=== PATIENT | male | born 1970 | race Caucasian/White ===

== ENCOUNTER 2018-05-27 11:17 | Emergency (ER) | payer MEDICAID, SELFPAY ==
[2018-05-27] VITALS (52 sets, daily range): BP systolic 123–146; BP diastolic 66–93; PULSE 63–86; RESP 12–32; TEMP 37.1–37.2; O2SAT 92–98
--- NOTE | 2018-05-27 11:37 | ED.GENADUL_ITS ---
Discharge Plan Disposition Patient Disposition: HOME Condition: Stable Discharge Details Chief Complaint: Chest Pain Clinical Impression: Atypical chest pain Primary Care Provider: Reid Bowling ED Provider: Estefani Andrade Home Meds and New Rx's Prescriptions: Continue losartan-hydrochlorothiazide 1 EACH tablet 1 tab-cap PO DAILY Qty: 90 RF: 3 Discharge Instructions Instructions: Chest Pain (ED) Additional Instructions: Please return immediately to the emergency department if you develop any new or worsening symptoms or if you become otherwise concerned. It is extremely important that you make an appointment to be seen by your primary care doctor this week in follow-up for this visit. It is also extremely important that you undergo cardiac stress testing within 72 hours at this visit as we discussed. Please call [phone] if you have any difficulty with these follow-up appointments. Referrals: Reid Bowling, DO [Primary Care Provider] - Discharge Data Discharge Date/Time-TO BE ENTERED AT DEPARTURE: 05/27/18 15:56 Medical Decision Making Noah Bartlett is a 47-year-old man with history of hypertension presenting to the emergency department with sharp, stabbing intermittent chest pain last for 3 -4 seconds at a time and has been occurring every 15 minutes or so since he woke up yesterday morning, worse with burping and occasionally worse with deep breathing. No other associated symptoms. On exam patient is very well and nontoxic appearing. He has no abdominal tenderness palpation. There is no tenderness of the sternum in the area of the pain. Concern for GERD versus esophageal spasm versus ACS versus PE versus other. At this time relatively low suspicion for ACS, will hold aspirin. Low risk for PE. Plan for EKG, chest x-ray, labs, telemetry, IV Protonix, will monitor and reassess. EKG, chest x-ray okay. Has had an episode of same stabbing 3-4 seconds of pain after Protonix. Plan for GI cocktail. Labs nondiagnostic, awaiting second troponin. Patient did have episode of pain after GI cocktail. Suspect esophageal etiology at this time with 2 troponins negative and very atypical nature pain. Patient with heart score 3. Low risk, plan for outpatient stress test and outpatient follow-up. Lengthy discussion with patient regarding return to emergency department precautions and importance of outpatient follow-up with PCP. He is amenable to the plan. Medical Records Medical records reviewed: Yes I reviewed the patient's medical records. Imaging Data Radiologic Study: Attestation: I personally reviewed and interpreted this imaging study as follows: Radiologist's impression: PA AND LATERAL CHEST: Comparison is made with August,. The heart size is at the upper limits of normal. The lungs appear clear. No infiltrate, effusion or pulmonary edema is seen. There is no evidence of pneumothorax. IMPRESSION: No acute abnormality. Lab Data Lab results reviewed: Yes I reviewed the patient's lab results. Laboratory Tests Range/Units 05/27/18 05/27/18 05/27/18 11:55 11:55 11:55 WBC (4.4-10.8) k/cumm 11.30 H RBC (4.50-6.00) m/cumm 4.88 Hgb (13.5-17.5) g/dL 14.9 Hct (40.0-50.0) % 43.9 MCV (80-95) fL 90.0 MCH (27.0-33.0) pg 30.5 MCHC (32.0-36.0) g/dL 33.9 RDW (11.8-14.1) % 13.4 Plt Count (130-400) x1000/uL 214 MPV (8.0-11.0) fL 10.3 Immature Gran % 0.2 Neutrophils % 69.9 Lymphocytes % 16.4 Monocytes % 8.1 Eosinophils % 5.0 Basophils % 0.4 Absolute Neutrophils (1.2-6.7) k/cumm 7.90 H Absolute Lymphocytes (1.2-3.4) k/cumm 1.85 Absolute Monocytes (0.11-0.7) k/cumm 0.92 H Absolute Eosinophils (0.0-0.7) k/cumm 0.57 Absolute Basophils (0.0-0.2) k/cumm 0.05 D-Dimer (<500) ng/mlFEU 374 Sodium (136-145) mmol/L 137 Potassium (3.5-5.1) mmol/L 3.8 Chloride (98-107) mmol/L 102 Carbon Dioxide (21.0-32.0) mmol/L 28.7 Anion Gap (3-11) mmol/L 6.3 BUN (7-18) mg/dL 18 Creatinine (0.70-1.30) mg/dL 1.05 Estimated GFR/1.73 m2 (mL/min/1.73m2) >= 60.00 Glucose (70-100) mg/dL 108 H Calcium (8.5-10.1) mg/dL 9.2 Total Bilirubin (0.2-1.0) mg/dL 0.4 AST (15-37) U/L 19 ALT (12-78) U/L 41 Alkaline Phosphatase (46-116) U/L 69 Troponin I (0.00-0.06) ng/mL < 0.02 Total Protein (6.4-8.2) g/dL 7.3 Albumin (3.4-5.0) g/dL 3.6 Lipase (73-393) U/L 148 Range/Units 05/27/18 15:00 WBC (4.4-10.8) k/cumm RBC (4.50-6.00) m/cumm Hgb (13.5-17.5) g/dL Hct (40.0-50.0) % MCV (80-95) fL MCH (27.0-33.0) pg MCHC (32.0-36.0) g/dL RDW (11.8-14.1) % Plt Count (130-400) x1000/uL MPV (8.0-11.0) fL Immature Gran % Neutrophils % Lymphocytes % Monocytes % Eosinophils % Basophils % Absolute Neutrophils (1.2-6.7) k/cumm Absolute Lymphocytes (1.2-3.4) k/cumm Absolute Monocytes (0.11-0.7) k/cumm Absolute Eosinophils (0.0-0.7) k/cumm Absolute Basophils (0.0-0.2) k/cumm D-Dimer (<500) ng/mlFEU Sodium (136-145) mmol/L Potassium (3.5-5.1) mmol/L Chloride (98-107) mmol/L Carbon Dioxide (21.0-32.0) mmol/L Anion Gap (3-11) mmol/L BUN (7-18) mg/dL Creatinine (0.70-1.30) mg/dL Estimated GFR/1.73 m2 (mL/min/1.73m2) Glucose (70-100) mg/dL Calcium (8.5-10.1) mg/dL Total Bilirubin (0.2-1.0) mg/dL AST (15-37) U/L ALT (12-78) U/L Alkaline Phosphatase (46-116) U/L Troponin I (0.00-0.06) ng/mL < 0.02 Total Protein (6.4-8.2) g/dL Albumin (3.4-5.0) g/dL Lipase (73-393) U/L ECG Data Attestation: I personally reviewed and interpreted this ECG (s) as follows: Interpretation: EKG shows normal sinus rhythm at 90 with normal axis, no acute ischemic changes, nondiagnostic EKG HPI General Mode of arrival: ambulatory . Date/Time Provider Initiated Documentation: 05/27/18 11:36 . Limitations to Documentation: no limitations . Information obtained by: patient, RN notes reviewed and old records reviewed . HPI Narrative: Noah Bartlett 47-year-old man with history of hypertension presenting to the emergency department with chest pain. Patient reports that yesterday morning he woke up with sharp pain that is retrosternal to the inferior aspect of the sternum. Patient reports that pain has been worse with trying to burp. He initially thought it was heartburn and did try taking Tums which did not change his pain at all. Patient reports the pain last for 3-4 seconds at a time, and is occurring approximately every 15 minutes. Unchanged by exertion, but he does think there may be some worsening of pain when he takes a deep breath. Pain does resolve completely between intermittent episodes. He has not had any other new pain since onset. No fevers, no shortness of breath, no cough, no nausea, no vomiting, no diarrhea, no numbness/ tingling, no weakness, no rash. Feels otherwise in his usual state of health. No recent travel. Eating and drinking as usual. Smoker, drinks alcohol approximately once a month, no drug use. Related Data Home Medications Medication Instructions Recorded Confirmed losartan-hydrochlorothiazide 1 tab-cap PO DAILY #90 tab-cap 06/12/17 05/27/18 Previous Rx's Medication Instructions Recorded losartan-hydrochlorothiazide 1 tab-cap PO DAILY #90 tab-cap 06/12/17 Allergies Allergy/AdvReac Type Severity Reaction Status Date / Time No Known Allergies Allergy Unverified 05/27/18 11:32 General Stated Complaint: Chest Pain ZAHRAA: 2 Review of Systems Review of Systems Constitutional: denies fevers Eyes: denies eye pain ENT: denies facial pain, dental pain, sore throat Cardiovascular: reports chest pain, denies edema Respiratory: denies SOB, cough GI: denies abdominal pain, vomiting, diarrhea : denies flank pain MSK: denies back pain, neck pain, arthralgias, myalgias Skin: denies rash Neuro: denies headaches, lightheadedness, weakness PFSH Family History Mother No problems noted. Father No problems noted. Sister No problems noted. Brother No problems noted. MAT AND PAT GRANDPARENTS No problems noted. Cholecystectomy (02/26/17) Family History Mother No problems noted. Father No problems noted. Sister No problems noted. Brother No problems noted. MAT AND PAT GRANDPARENTS No problems noted. Social History Smoking/Tobacco Use Status: Current every day Surgical History Cholecystectomy (02/26/17) Social History Smoking/Tobacco Use Status: Current every day Exam Narrative Exam Narrative: Constitutional: well and [id number], pleasant, conversing normally HENT: head atraumatic, normocephalic normal inspection, mucous membranes moist Eyes: conjunctiva normal, sclera normal, pupils 3mm b/l Neck: no stridor, normal ROM, trachea midline Chest: normal inspection, sternum over area of pain NTTP Resp: normal work of breathing, LCTAB Cardio: normal rate, normal rhythm, no murmur appreciated GI: abdomen soft, non-tender, non-distended Back: normal inspection, no rash Skin: warm, dry, normal color, no rash Neuro: alert, not altered, grossly non-focal, normal tone Ext: no edema, no posterior calf TTP Psych: normal mood, normal affect, normal behavior Course Vital Signs Temperature 37.2 C 05/27/18 11:26 Pulse 85 05/27/18 11:26 Respiratory Rate 20 05/27/18 11:26 Blood Pressure 145/82 H 05/27/18 11:26 Pulse Oximetry 95 05/27/18 11:26 Temperature 37.2 C 05/27/18 11:26 Temperature Source Temporal Artery Scan 05/27/18 11:26 Pulse 85 05/27/18 11:26 Respiratory Rate 20 05/27/18 11:33 Respiratory Effort Non-Labored 05/27/18 11:33 Respiratory Depth Normal 05/27/18 11:33 Respiratory Pattern Normal 05/27/18 11:33 Blood Pressure 145/82 H 05/27/18 11:26 Blood Pressure Position Supine 05/27/18 11:26 Pulse Oximetry 95 05/27/18 11:26 Oxygen Delivery Method Room Air 05/27/18 11:26 Oxygen Flow Rate 0 05/27/18 11:26 Pain Level 0 05/27/18 11:33
[2018-05-27 12:05] LABS: Abs Immature Grans 0.02 k/cumm (0.0-0.09); Absolute Lymphocyte Count 1.85 k/cumm (1.2-3.4); Absolute Monocyte Count 0.92 k/cumm (0.11-0.7); Basophils % 0.4; HCT 43.9 % (40.0-50.0); HGB 14.9 g/dL (13.5-17.5); Immature Grans % 0.2; Lymphocytes % 16.4; Mean Corp. HGB Concentration 33.9 g/dL (32.0-36.0); Mean Corpuscular Hemoglobin 30.5 pg (27.0-33.0); Mean Platelet Volume 10.3 fL (8.0-11.0); Monocytes % 8.1; Neutrophils % 69.9; Platelet Count 214 x1000/uL (130-400); RBC 4.88 m/cumm (4.50-6.00); RBC Distribution Width 13.4 % (11.8-14.1)
[2018-05-27] MEDS: Pantoprazole 40 MG VIAL IVP (12:05)
[2018-05-27 12:08] LABS: Absolute Basophil Count 0.05 k/cumm (0.0-0.2); Absolute Eosinophil Count 0.57 k/cumm (0.0-0.7)
--- NOTE | 2018-05-27 12:20 | DI.RAD_ITS ---
SYMPTOMS/DIAGNOSIS: CHEST PAIN PA AND LATERAL CHEST: Comparison is made with August,. The heart size is at the upper limits of normal. The lungs appear clear. No infiltrate, effusion or pulmonary edema is seen. There is no evidence of pneumothorax. IMPRESSION: No acute abnormality.
[2018-05-27 12:31] LABS: ALT 41 U/L (12-78); AST 19 U/L (15-37); Albumin 3.6 g/dL (3.4-5.0); Alkaline Phosphatase 69 U/L (46-116); Anion Gap 6.3 mmol/L (3-11); BUN 18 mg/dL (7-18); Bilirubin, Total 0.4 mg/dL (0.2-1.0); CO2 28.7 mmol/L (21.0-32.0); CREATININE 1.05 mg/dL (0.70-1.30); Calcium 9.2 mg/dL (8.5-10.1); Chloride 102 mmol/L (98-107); Glucose 108 mg/dL (70-100); Lipase 148 U/L (73-393); Potassium 3.8 mmol/L (3.5-5.1); Sodium 137 mmol/L (136-145); Total Protein 7.3 g/dL (6.4-8.2)
[2018-05-27 12:32] LABS: Troponin I < 0.02 ng/mL (0.00-0.06)
[2018-05-27 12:43] LABS: D-Dimer 374 ng/mlFEU (<500)
[2018-05-27 15:36] LABS: Troponin I < 0.02 ng/mL (0.00-0.06)
--- NOTE | 2018-05-27 16:13 | NUR.NOTE ---
Nursing Note: Regular Exercise Treadmill Stress Test scheduled for patient: @ 0830 am. Kasandra Wang.
--- NOTE | 2018-05-27 18:28 | NUR.NOTE ---
Nursing Note: Discharge signature sheet sent home with patient accidentally. Kasandra Wang.
== END 2018-05-27 15:56 | disposition home or self-care (01) ==
PROVIDERS: Emergency Provider Student in an Organized Health Care Education/Training Program; PCP Emergency Medicine
DX: R07.89 Other chest pain (principal); I10 Essential (primary) hypertension
CPT/HCPCS: 36415; 80053; 83690; 93005; 96374; 99285; 71046; 84484; 85025; 85379; 93010

== ENCOUNTER 2018-05-30 00:56 | Outpatient (CLI) | payer MEDICAID, SELFPAY ==
--- NOTE | 2018-05-30 08:30 | ETT_ITS ---
*[facility]* *[facility]* [address] [place] [address] Stress Electrocardiography Felix protocol Date of study: 05/30/2018 *PATIENT PRESENTATION* Height: 175.3cm (69in) Blood Pressure: Weight: 113.6kg (250lb) BSA: 2.4m^2 Ordering physician: Estefani Andrade Impressions: Normal study after maximal exercise. Summary: 1. Stress: The target heart rate was achieved. Indication: R07.9. History: REASON FOR VISIT: THIS PT WITH A HISTORY OF HYPERTENSION WAS SEEN IN THE ED ON 05/27/18 WITH COMPLAINT OF SHARP, STABBING INTERMITTENT CHEST PAIN LASTING 3-4 SECONDS AT A TIME AND HAD BEEN OCCURING EVERY 15 MINUTES OR SO SINCE HER WOKE UP THE PREVIOUS MORNING, WORSE WITH BURPING AND OCCASIONALLY WORSE WITH DEEP BREATHING. NO OTHER ASSOCIATED SYMPTOMS. PT DENIES CHEST PAIN UPON ARRIVAL TODAY. PMH: Asthma. Risk factors: Current tobacco use. Hypertension. Obesity. ALLERGIES: NO KNOWN ALLERGIES. MEDICATIONS: LOSARTAN-HYDROCHLOROTHIAZIDE 1 TAB DAILY. Protocol: Felix protocol. Baseline ECG: SINUS RHYTHM. HR 66 BPM. Stress protocol: + +---+ + !Stage !HR !BP (mmHg) ! + +---+ + !Baseline supine !66 !128/92 (104) ! + +---+ + !Baseline standing !63 !170/92 (118) ! + +---+ + !Stage I; 1.7mph, 10degrees; 3 min !100!150/98 (115) ! + +---+ + !Stage II; 2.5mph, 12degrees; 3 min !108!202/102 (135)! + +---+ + !Stage III; 3.4mph, 14degrees; 3 min!122!208/110 (143)! + +---+ + !Recovery; 1 min !129!198/92 (127) ! + +---+ + !Recovery; 3 min !98 !200/98 (132) ! + +---+ + !Recovery; 6 min !86 !144/96 (112) ! + +---+ + * Stress results: Maximal heart rate during stress was 148bpm (86% of maximal predicted heart rate). The maximal predicted heart rate was 173bpm. The target heart rate was achieved. The rate-pressure product for the peak heart rate and blood pressure was 03826ei Hg/min. Stress ECG: TREADMILL PORTION OF STRESS TEST ENDED IN 10 MINUTES & 5 SECONDS BECAUSE OF FATIGUE NORMAL HEART RATE RESPONSE TO TO EXERCISE. ELEVATED BLOOD PRESSURE RESPONSE TO EXERCISE. MAX HR = 148 % OF TARGET HR = 85 NO ECTOPY APPROXIMATE METS ACHIEVED = 11.93 NO ANGINA NO SIGNIFICANT ST SEGMENT CHANGES AVERAGE FUNCTIONAL CAPACITY FOR EXERCISE. Study data: Alina Urban MD supervised and was readily available during the procedure. This study was interpreted by [facility]. Study status: Routine. Consent: The risks, benefits, and alternatives to the procedure were explained to the patient and informed consent was obtained. Procedure: Initial setup. A baseline ECG was recorded. Surface ECG leads and manual cuff blood pressure measurements were monitored. Heart sounds: Normal. Lung sounds: Normal. Treadmill exercise testing was performed using the Felix protocol. Study completion: The patient tolerated the procedure well and was discharged from the lab. Discharge: The patient left the laboratory in stable condition. Birthdate: Patient birthdate: 1970. Sex: Gender: male. Study date: Study date: 05/30/2018. Study time: 08:30 AM. Signature Documentation: The Stress ECG portion of this study was interpreted by Alina Urban MD. Electronically signed by Alina Urban 05/30/2018 09:41
== END 2018-05-30 01:16 ==
PROVIDERS: PCP Emergency Medicine; Visit Provider Student in an Organized Health Care Education/Training Program
DX: R07.9 Chest pain, unspecified (principal)
CPT/HCPCS: 93017

== ENCOUNTER 2021-08-19 03:43 | Outpatient (CLI) | payer MEDICAID, SELFPAY ==
[2021-08-19 07:37] LABS: Bilirubin Negative (Negative); Blood Moderate (Negative); Clarity Clear (Clear); Glucose Negative (Negative); Ketones Negative (Negative); Leukocyte Esterase Negative (Negative); Nitrite Negative (Negative); Specific Gravity >= 1.030 (1.005-1.025); Urobilinogen 0.2 EU/dL (Up TO 0.2); pH 5.5 (5-8)
[2021-08-19 07:43] LABS: HCT 45.8 % (40.0-50.0); HGB 15.2 g/dL (13.5-17.5); MCH 29.6 pg (27.0-33.0); MCHC 33.2 % (32.0-36.0); MCV 89.1 fL (80-95); Platelet Count 252 10^3/uL (130-400); RBC 5.14 10^6/uL (4.36-5.78); RDW 12.3 % (11.8-14.1); RDW-SD 40.7 fL; WBC 10.41 10^3/uL (4.4-10.8)
[2021-08-19 07:44] LABS: Bacteria Rare HPF (Negative); C & S Indicated? No; Casts Negative LPF (Negative); Crystals Negative HPF (Negative); Epithelial Cells Few HPF (Negative); Mucus Negative (Negative); WBC 0-2 HPF (0-5)
[2021-08-19 08:22] LABS: ALT 49 U/L (16-63); AST 23 U/L (15-37); Albumin 3.8 g/dL (3.4-5.0); Alkaline Phosphatase 74 U/L (46-116); Anion Gap 8.6 mmol/L (3-11); BUN 15 mg/dL (7-18); Bilirubin, Total 0.5 mg/dL (0.2-1.0); CO2 27.4 mmol/L (21.0-32.0); CREATININE 1.2 mg/dL (0.70-1.30); Calcium 8.9 mg/dL (8.5-10.1); Calculated LDL 107 mg/dL (<100); Chloride 103 mmol/L (98-107); Cholesterol 169 mg/dL (<200); Glucose 112 mg/dL (74-106); HDL Cholesterol 31 mg/dL (40-60); Potassium 4.5 mmol/L (3.5-5.1); Sodium 139 mmol/L (136-145); TSH (W/Ref FT4) 2.21 uIU/mL (0.36-3.74); Total Protein 6.9 g/dL (6.4-8.2); Triglyceride 157 mg/dL (<150)
[2021-08-19 18:03] LABS: PSA, Screening 0.3 ng/mL (0.0-3.5)
[2021-08-22 10:59] LABS: Hepatitis C Ab w Rflx HCV PCR Negative (Negative)
[2021-08-22 12:18] LABS: HIV-1/2 Ag & Ab Screen Negative (Negative)
== END 2021-08-19 03:44 | disposition home or self-care (01) ==
LOC: LBO 03:43
PROVIDERS: PCP Family Medicine; Visit Provider Family Medicine
DX: I10 Essential (primary) hypertension (principal); Z11.59 Encounter for screening for other viral diseases; Z12.5 Encounter for screening for malignant neoplasm of prostate; Z11.4 Encounter for screening for human immunodeficiency virus [HIV]
CPT/HCPCS: 36415; 80053; 80061; 84153; 85027; 86803; 87389; 81003; 81015; 84443

== ENCOUNTER 2021-10-18 01:00 | Outpatient (CLI) | payer MEDICAID, SELFPAY ==
--- NOTE | 2021-10-18 07:45 | DI.CT_ITS ---
Exam(s) CT ABDOMEN PELVIS WO/W EXAM: CT ABDOMEN PELVIS WO/W CLINICAL HISTORY: hematuria, R31.9. TECHNIQUE: Imaging Protocol: Axial computed tomography images with coronal and sagittal reformatted images were created and reviewed CONTRAST MATERIAL: Intravenous: Omnipaque 100cc Oral: None COMPARISON: CT ABD PELVIS WITH CONTRAST from 02/26/2017 FINDINGS: VISUALIZED LUNG BASES: No nodules nor pleural effusions evident. ABDOMEN: There is no ascites. KIDNEYS: Kidneys exhibit normal size and position. No malrotation. There are no radiopaque calculi. No hydronephrosis nor hydroureter. No cysts nor solid masses in the kidneys. No consistent filling defects renal pelves. There is a si ngle ureter on each side normal course. No obstruction at the ureterovesical junctions. On the righ t side there is mild focal dilatation right ureter mid aspect (8 millimeters). On the lateral delaye d images there is a subtle suggestion of a possible focal stricture at this level. URINARY BLADDER: No radiopaque calculi. No masses. No diverticuli.. PROSTATE GLAND: Not significantly enlarged. Seminal vesicles upper normal size. No evidence of calc ified vas deferens. LIVER: Steatosis. No discrete focal hepatic lesions. No dilatation of intrahepatic ducts. GALLBLADDER/BILIARY: Gallbladder is now surgically absent. CBD is not dilated. PANCREAS: No evidence of pancreatic mass nor dilatation of the pancreatic duct. SPLEEN: Spleen is not enlarged. No obvious intrasplenic lesions. Small benign splenule medial to th e spleen. Splenic and portal veins are patent. ADRENALS: There are no significant adrenal masses. ABDOMINAL AORTA: Abdominal aorta is not enlarged. LYMPH NODES:There is no retroperitoneal nor paraaortic adenopathy. ABDOMINAL WALL: No evidence of significant anterior abdominal wall nor inguinal hernia. GI: There is no evidence of bowel obstruction, free air, nor abscess. PELVIS: GI: No evidence of appendicitis.No evidence of sigmoid diverticulitis. LYMPH NODES: There is no intrapelvic nor inguinal adenopathy. REPRODUCTIVE: Age-appropriate URINARY BLADDER: As above. No obvious abnormalities. OSSEOUS: No lytic nor blastic osseous lesions. Chronic disc space narrowing L5-S1. IMPRESSION: 1. No significant findings in the kidneys. 2. No obvious abnormality in the urinary bladder. 3. 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 In the mid-pelvic left ureter there is a consistent subt le area dilatation above what appears to be a subtle focal stricture, as best seen on the lateral del ayed sagittal images. There is no obstruction at this level. However, this is significant focal fin ding, including possible subtle uroepithelial focal neoplasm. Recommend retrograde pyelogram/retrogr clarissa ureteral scope. RADIATION DOSE DELIVERED: 4,263.35mGy.cm Total DLP DATA REPOSITORY: All CT scans at this facility are submitted to the National Radiology Data Registry (NRDR) Dose Index Registry (DIR) with the [employer] (ACR). RADIATION OPTIMIZATION: All CT scans at this facility use at least one of these dose optimization te chniques: automated exposure control; mA and/or kV adjustment per patient size (includes targeted exa ms where dose is matched to clinical indication); or iterative reconstruction.
[2021-10-18] MEDS: Omnipaque 350 MG/ML 100 ML BTL IJ (12:08)
== END 2021-10-18 01:20 ==
PROVIDERS: PCP Family Medicine; Visit Provider Nurse Practitioner Gerontology
DX: R31.9 Hematuria, unspecified (principal); N28.89 Other specified disorders of kidney and ureter
CPT/HCPCS: 74178; J3490

== ENCOUNTER 2021-11-18 02:03 | Outpatient (CLI) | payer MEDICAID, SELFPAY ==
[2021-11-18 10:28] LABS: Source Nasal/Nares
[2021-11-18 17:31] LABS: COVID-19 PCR Negative (Negative)
== END 2021-11-18 02:04 | disposition home or self-care (01) ==
LOC: LBO 02:03
PROVIDERS: Urology; PCP Family Medicine; Visit Provider Nurse Practitioner Gerontology
DX: Z20.822 Contact with and (suspected) exposure to COVID-19 (principal); Z01.818 Encounter for other preprocedural examination; R31.29 Other microscopic hematuria
CPT/HCPCS: 87635

== ENCOUNTER 2021-11-21 06:01 | Day surgery (SDC) | payer MEDICAID, SELFPAY ==
[2021-11-21 06:13] VITALS: BP 129/86; PULSE 63; RESP 16; TEMP 36.6; O2SAT 95
--- NOTE | 2021-11-21 06:35 | HPE_ITS ---
Date of service: 11/21/21 Time of Service: 05:35 Assessment and Plan Assessment and plan (1) Microscopic hematuria: Status: Acute Assessment and plan: For cystoscopy with right retrograde pyelogram and possible ureteroscopy History of Present Illness History of Present Illness Chief Complaint: Microscopic hematuria Narrative: Mr. Bartlett is a 50-year-old male referred to urology by his PCP at [facility] for microscopic hematuria.? Patient was seen here in clinic in 2016/2017 for microscopic hematuria.? He had the completion of the hematuria work-up with cystoscopy in the OR in 2018.? No uropathy of concern was identified at that time.? Patient reports over the past 4 years he has had continued note of microscopic hematuria.? He has never had gross hematuria.? He reports that he can have days where he can frequently void and have urgency or the other days he does not have the frequency and urgency and drinks the same fluids/quantities.? He has not had urinary retention.? He underwent a CT Urogram that demonstrated a possible right mid ureteral mucosal abnormality. He presents for cystoscopy with retrograde pyelogram. Review of Systems Narrative: No fevers or chills Rhinitis. No vision change or dysphasia No diabetes or thyroid Sleep apnea. No hemoptysis No chest pain or palpitations GERD. No nausea, vomiting, hepatitis, ulcers, jaundice No seizures, strokes or peripheral neuropathy No bleeding disorders or anemia No gout or arthralgia PFSH All Active Problems Hyperglycemia (Acute) 08/2021, [id number] Essential hypertension (Acute) Personal history of nicotine dependence (Acute) 1 ppd as of 08/2021, 30 pk yr Sleep apnea (Acute 07/24/14) CPAP Rhinitis (Acute) Obesity (Acute) Microscopic hematuria (Acute 02/01/18) 2018-negative work-up with urology-CT imaging, cystoscopy Esophageal reflux (Acute) Surgical History Cholecystectomy (02/26/17) Family History Mother No problems noted. Father No problems noted. Sister No problems noted. Brother No problems noted. MAT AND PAT GRANDPARENTS No problems noted. Social History (Updated 09/29/21 @ 11:32 by DOLORES Baez Smoking/Tobacco Use Status: Current every day Tobacco Type: cigarettes Tobacco: How many years used: 34 Smokeless tobacco user: chewing tobacco Quit status: has quit before Second Hand Exposure: Yes Smoking risk assessment performed?: Yes Alcohol Intake: current Alcohol Intake frequency: holidays/special occasions only Alcohol type: beer Substance use type: does not use Household members: family, children and friend(s) Do you need help understanding health information?: Never Pets and animals: Yes Pets and animals: cat(s), dog(s) and horse(s) Do you think of yourself as: straight/heterosexual Current gender identity: male What is your relationship status?: living with partner How often do you talk on the phone with friends or family?: three or more times per week How often do you get together with friends or relatives?: twice per week Do you belong to any clubs or organized social groups?: yes Panel score (0-1 are the most socially isolated patients): 3 Duration: > 90 minutes/day Frequency: 5-6 times per week Ela/Scientologist: No preference Special ela needs: No Seatbelt use: sometimes Helmet use: No Drive intox or ride w/intox local [place] truck driver: No Do you feel safe at home: Yes Do you feel safe in your relationship?: Yes Meds Allergies and Home Medications Allergies Allergy/AdvReac Type Severity Reaction Status Date / Time No Known Allergies Allergy Unverified 11/18/21 10:01 Home Medications Medication Instructions Recorded Confirmed Type hydrochlorothiazide 25 mg tablet 25 mg PO DAILY #90 tabs 08/04/21 11/21/21 Rx losartan 100 mg tablet 100 mg PO DAILY #90 tabs 08/04/21 11/21/21 Rx Exam Const General: cooperative and comfortable Neck Neck: supple Resp Effort & Inspection: normal respiratory effort Auscultation: clear to auscultation bilaterally Cardio Rate: regular rate Rhythm: regular rhythm GI Inspection: obesity Neuro General: patient alert, patient awake and patient oriented x3 Results Last Vital Signs Temp 36.6 C 11/21/21 06:13 Pulse 63 11/21/21 06:13 Resp 16 11/21/21 06:13 BP 129/86 11/21/21 06:13 Pulse Ox 95 11/21/21 06:13
[2021-11-21] MEDS: Lactated Ringers 1,000 ML 80 ML IV (06:38)
--- NOTE | 2021-11-21 07:00 | DI.RAD_ITS ---
Exam(s) XR RETROGRADE IN OR EXAM: XR RETROGRADE IN OR CLINICAL HISTORY: MICROSCOPIC HEMATURIA. TECHNIQUE: Fluoroscopy was provided for the referring physician for guidance with performing retrogr clarissa procedure. COMPARISON: CT CT ABDOMEN PELVIS WO/W from 10/18/2021 FINDINGS: Please see procedure note for details. Fluoro time: 17.8 seconds RADIATION DOSE DELIVERED: arianne Mae=10.9 mGy
--- NOTE | 2021-11-21 07:00 | W.ANESPRE ---
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 Beka Urrutia MD Meds Allergies and Home Medications Allergies Allergy/AdvReac Type Severity Reaction Status Date / Time No Known Allergies Allergy Unverified 11/18/21 10:01 Home Medication Medication Instructions Recorded hydrochlorothiazide 25 mg tablet 25 mg PO DAILY #90 tabs 08/04/21 losartan 100 mg tablet 100 mg PO DAILY #90 tabs 08/04/21 Current Visit Medications: Current Medications Generic Name Dose Route Start Last Admin Trade Name Freq PRN Reason Stop Dose Admin Ringer's Solution 1,000 mls @ 80 mls/hr 11/21/21 06:00 11/21/21 06:38 IV 12/18/21 23:59 80 mls/hr INFUSION LEIGHANN Administration Cefazolin Sodium/Dextrose 2 gm in 50 mls @ 100 mls/hr 11/21/21 06:00 Ancef Duplex IVPB 12/18/21 23:59 PREOP LEIGHANN IV Miscellaneous Supplies 1 each 11/21/21 06:00 Iv Access IV 12/18/21 23:59 DIRECTED LEIGHANN Sodium Chloride 0 ml 11/21/21 06:00 Normal Saline Flush 10 Ml Syr IV 12/18/21 23:59 PRN PRN Sodium Chloride 0 ml 11/21/21 06:00 Normal Saline 10 Ml Vial IJ 12/18/21 23:59 DIRECTED PRN Sterile Water 0 ml 11/21/21 06:00 Water,Injection,Sterile 10 Ml Vial IJ 12/18/21 23:59 DIRECTED PRN PFSH Active Problems Active Problems: Problem Status Onset Code Hyperglycemia R73.9 Essential hypertension I10 Personal history of nicotine dependence Z87.891 Sleep apnea 07/24/14 G47.30 Rhinitis J31.0 Obesity E66.9 Microscopic hematuria 02/01/18 R31.29 Esophageal reflux K21.9 Surgical History Surgical History Cholecystectomy (02/26/17) Tobacco Smoking/Tobacco Use Status: Current every day Tobacco Type: cigarettes Smokeless tobacco user: chewing tobacco Second hand exposure: Yes Alcohol Alcohol Intake: current Alcohol intake frequency: holidays/special occasions only Alcohol type: beer Substance Use Substance use type: does not use Vital Signs and Lab Results Vital Signs Most Recent Vital Signs in EMR: Most Recent Vital Signs Temp Pulse Resp BP Pulse Ox 36.6 C 63 16 129/86 95 11/21/21 06:13 11/21/21 06:13 11/21/21 06:13 11/21/21 06:13 11/21/21 06:13 Lab Results Blood Type / Crossmatch: No Data to Display Complete Blood Count: No Data to Display Complete Metabolic Panel: No Data to Display Liver Function Panel: No Data to Display Coagulation Panel: No Data to Display Cardiac Panel: No Data to Display Arterial Blood Gas: No Data to Display Venous Blood Gas: No Data to Display Pancreas Panel: No Data to Display Thyroid Panel: No Data to Display Infectious Disease: Coronavirus (COVID-19)(PCR) Negative (Negative) 11/18/21 08:55 Coronavirus 2019 Source Nasal/Nares 11/18/21 08:55 Blood Cultures: No Data to Display Toxicology Panel: No Data to Display Imaging and Studies Imaging and Studies Study information below may be from another EMR and interpreted by another provider. Please see original notes in EMR for more complete details. Stress Test Summary: Stress results: Maximal heart rate during stress was 148bpm (86% of maximal predicted heart rate). The maximal predicted heart rate was 173bpm. The target heart rate was achieved. The rate-pressure product for the peak heart rate and blood pressure was 50030gc Hg/min. Stress ECG: TREADMILL PORTION OF STRESS TEST ENDED IN 10 MINUTES & 5 SECONDS BECAUSE OF FATIGUE NORMAL HEART RATE RESPONSE TO TO EXERCISE. ELEVATED BLOOD PRESSURE RESPONSE TO EXERCISE. MAX HR = 148 % OF TARGET HR = 85 NO ECTOPY APPROXIMATE METS ACHIEVED = 11.93 NO ANGINA NO SIGNIFICANT ST SEGMENT CHANGES AVERAGE FUNCTIONAL CAPACITY FOR EXERCISE. Anesthesia Assessment and Plan Anesthesia History Personal History: No History of Anesthesia Complications Family History: No Family History of Anesthesia Complications Exercise Tolerance Exercise Tolerance: Metabolic Equivalents>4 Pertinent Negatives Pertinent Negatives: No Symptoms of GERD, No Major Cardiovascular Symptoms or Complaints, No Major Pulmonary Symptoms or Complaints ([facility]ADLEY) and No History of CVA/TIA Cardiac & Pulmonary Exam Cardiac Exam: Normal S1/S2 Heart Sounds Pulmonary Exam: Clear Bilateral Breath Sounds Implantable Cardiac Device Does patient have a Pacemaker or an ICD?: No Airway Exam Known Difficult Airway: No Mallampati Class: 2 Mouth Opening: Normal (> 3cm) Thyromental Distance: Greater than 3 cm Facial Hair: Full Zhao Neck Range of Motion: Full ROM Neck Circumference: Normal Teeth Condition: Normal Dentition ASA Classification ASA Score: ASA 2 Emergency Case?: No NPO Status NPO Status: NPO Clears >2 hours, Solids >8 hours Anesthesia Plan Resuscitation Status: Full Code Anesthesia Technique: General Anesthesia Airway Planned: Natural Airway Monitors Used: Standard Monitors
[2021-11-21 07:21] VITALS: BMI 38.5
[2021-11-21] MEDS: ceFAZolin 2 GM/50 ML BAG IVPB (07:32)
[2021-11-21] MEDS: Lidocaine 2% Jelly 6 ML SYR (07:44)
--- NOTE | 2021-11-21 07:50 | PAPNONF_PTH ---
PATIENT: Noah Bartlett LOC: [facility] U#:[id number] AGE/SX: 50/M ROOM: RE11/21/[address]: Beka Urrutia MD : 1970 BED: DIS: 11/21/2021 SPEC #: [id number] RECD: 11/21/21 13:02 STATUS: [facility] #: [id number] TADEO: 11/21/21 07:[address]: Beka Urrutia DEPT: [facility] Cytology RECD BY: Ragini Green ENTERED: 11/21/21 13:02 SP TYPE: АННА COLON DR: Dmitry Santos Tissues: 1 - BODY FLUID CYTO(SPUTUM/URINE)[facility] Procedures: BODY FLUID CYTO(URINE/SPUTUM) Comments: (TOTAL VOLUME = 60 ml) (30 ml URINE & 30 ml CYTOLYT ADDED IN 2 CONTAINERS)
[2021-11-21] MEDS: Omnipaque 300 MG/ML 50 ML BTL (07:58)
--- NOTE | 2021-11-21 08:12 | W.PM.DSUDISC ---
Discharge Plan Disposition Patient Disposition: HOME Condition: Stable Discharge Details Reason For Visit: cystoscopy Attending Provider: Beka Urrutia Primary Care Provider: Dmitry Santos Home Meds and New Rx's Prescriptions: No Action losartan 100 mg tablet 100 mg PO DAILY Qty: 90 3RF hydrochlorothiazide 25 mg tablet 25 mg PO DAILY Qty: 90 3RF Discharge Instructions Additional Instructions: yearly followup for urinalysis (can be with PCP or with my office) my office will contact pt with results of urine cytology by phone Activity:: Activity as Tolerated Shower/Bathe:: 24 hours Diet:: As Tolerated Discharge Orders Discharge Orders: Discharge Order (Routine); Ordered 11/21/21 Ordered By: Beka Urrutia DS: Diagnosis Discharge Diagnosis (1) Microscopic hematuria: Status: Acute
[2021-11-21 08:14] VITALS: BP 119/71; PULSE 68; RESP 16; TEMP 36.5; O2SAT 94
--- NOTE | 2021-11-21 08:16 | W.PM.OP ---
Date of service: 11/21/21 Time of Service: 07:16 Operative Note Operative Note DATE OF PROCEDURE: 11/21/21 PRE-OP DIAGNOSIS: microscopic hematuria POST-OP DIAGNOSIS: same PROCEDURE: cystoscopy, right retrograde pyelogram, right flexible ureteroscopy SURGEON: Beka Urrutia ANESTHESIA TYPE: Local By Surgeon and General:No Airway Refer to Anesthesia Record ESTIMATED BLOOD LOSS: 5 PATHOLOGY: other (urine for cytology) COMPLICATIONS: None Patient was transported to: same day Patient's condition: stable Implants: none Indications: This is a 50-year-old gentleman who has a history of persistent microscopic hematuria. He had a negative hematuria work-up about 4 years ago. More recently, he had a CT urogram that showed a possible filling defect on the right distal ureter. He presents for cystoscopy and right retrograde pyelogram to complete his hematuria work-up Findings: No mucosal abnormalities in the right ureter Procedure Description: The patient was brought to the operating room on 11/21/2021. After successful induction of general anesthesia, he was placed in the dorsal lithotomy position. His genitalia was prepped and draped. He was given a dose of preoperative antibiotics. 2% Xylocaine jelly was instilled into the urethra to act as a local anesthetic. A 22 Mongolian rigid cystoscope was passed through the urethra into the bladder. The bladder was drained and the urine was collected. The urine was sent to pathology for cytology examination. The bladder was inspected using both a 30 and a 70 degree lens. Both ureteral orifices appeared normal with no blood coming from either side. The remainder the bladder was smooth-walled with no papillary or nodular lesions. The prostate showed some mild lateral lobe enlargement with an elevated median lobe. No mucosal abnormalities were seen on the prostate. The right ureteral orifice was cannulated with a 5 Mongolian access catheter. Retrograde film was obtained by injecting Omnipaque through the access catheter under fluoroscopic guidance. The diameter of the ureter changed abruptly in the pelvis but I did not identify any filling defect in that area. I then passed a Glidewire up through the access catheter and advanced the wire until the proximal end reach the renal pelvis. I removed the access catheter and passed the dual-lumen catheter. This allowed me to place a second wire. One of the wires was chosen as the working wire and the other was chosen as a safety wire. I then passed the flexible ureteroscope over the working wire and inspected the ureteral mucosa. No mucosal-based abnormalities were seen in the ureter. The diameter of the ureter did seem smaller below the level of the pelvic brim. With no visible abnormalities, scope and safety wire were then removed. The patient tolerated the procedure well with no complications.
--- NOTE | 2021-11-21 08:35 | W.ANESPOSTOP ---
Postoperative Evaluation Date, Time and Location Date Performed: 11/21/21 Time Performed: 08:35 Patient Location: Day Surgery Unit Vital Signs Most Recent Imported Vital Signs: Most Recent Vital Signs Temp Pulse Resp BP Pulse Ox 36.5 C 68 16 119/71 94 11/21/21 08:14 11/21/21 08:14 11/21/21 08:14 11/21/21 08:14 11/21/21 08:14 Most Recent Manually Entered Vital Signs: Adult Blood Pressure: 128/82 Heart Rate: 78 Respirations: 10 Oxygen Saturation (%): 99 Temperature (C): 36.3 C Pain Score (0-10 Scale): 2 Pain Score Most Recent Pain Score: Most Recent Pain Score Pain Level 2 11/21/21 08:14 Assessment Mental Status: Awake (Alert & Oriented to Patient Baseline) Airway and Respiratory Function: Patent airway with normal (patient baseline) respiratory exam Cardiovascular Function: Hemodynamically Stable Hydration Status: Adequately Hydrated Nausea & Vomiting: No Nausea or Vomiting Pain: Pain is tolerable per patient Peripheral Nerve Block: Patient did not receive a nerve block
[2021-11-21 08:36] VITALS: BP 128/82; PULSE 78; RESP 10; TEMPC 36.3; O2SAT 99
[2021-11-21 08:53] VITALS: BP 125/75; PULSE 64; RESP 16; TEMP 36.6; O2SAT 95
== END 2021-11-21 09:24 | disposition home or self-care (01) ==
PROVIDERS: PCP Family Medicine; Visit Provider Urology
PROC: (CPT 74450; principal; 2021-11-21 07:30)
DX: R31.29 Other microscopic hematuria (principal); I10 Essential (primary) hypertension; E66.9 Obesity, unspecified
CPT/HCPCS: 52005; 74420; 88104; J0690; J2250; J2405; Q9967

== ENCOUNTER 2022-08-17 01:28 | Outpatient (CLI) | payer MEDICAID, SELFPAY ==
[2022-08-17 12:46] LABS: CREATININE 1.1 mg/dL (0.70-1.30); Estimated GFR 81.28 (mL/min/1.73m2); Potassium 4.1 mmol/L (3.5-5.1)
[2022-08-17 13:02] LABS: Hemoglobin A1C 5.8 % (<5.7)
== END 2022-08-17 01:29 | disposition home or self-care (01) ==
LOC: LOS 01:28
PROVIDERS: PCP Nurse Practitioner Family; Visit Provider Nurse Practitioner Family
DX: I10 Essential (primary) hypertension (principal); R73.03 Prediabetes
CPT/HCPCS: 36415; 82565; 83036; 84132

== ENCOUNTER 2024-05-02 16:39 | Outpatient (REF) | payer MEDICAID, SELFPAY ==
[2024-05-02 21:13] LABS: CREATININE 1.1 mg/dL (0.70-1.30); Calculated LDL 82 mg/dL (<100); Cholesterol 176 mg/dL (<200); Estimated GFR 80.27 (mL/min/1.73m2); HDL Cholesterol 32 mg/dL (40-60); Potassium 4.2 mmol/L (3.5-5.1); Triglyceride 312 mg/dL (<150)
[2024-05-02 21:25] LABS: Hemoglobin A1C 5.8 % (<5.7)
== END 2024-05-02 16:40 | disposition home or self-care (01) ==
LOC: NCHCN 16:39
PROVIDERS: PCP Nurse Practitioner Family; Visit Provider Nurse Practitioner Family
DX: Z13.1 Encounter for screening for diabetes mellitus (principal); Z13.220 Encounter for screening for lipoid disorders; I10 Essential (primary) hypertension
CPT/HCPCS: 80061; 82565; 83036; 84132

== ENCOUNTER 2025-06-01 09:32 | Outpatient (CLI) | payer MEDICAID, SELFPAY ==
[2025-06-01 14:23] LABS: Hemoglobin A1C 6.0 % (<5.7)
[2025-06-01 14:24] LABS: Cholesterol 175 mg/dL (<200); HDL Cholesterol 37 mg/dL (>40)
== END 2025-06-01 09:33 | disposition home or self-care (01) ==
PROVIDERS: PCP Nurse Practitioner Family; Visit Provider Nurse Practitioner Family
DX: Z13.220 Encounter for screening for lipoid disorders (principal); Z13.1 Encounter for screening for diabetes mellitus
CPT/HCPCS: 36415; 80061; 83036